=== PATIENT | female | born 1960 | race Caucasian/White ===

== ENCOUNTER 2018-05-30 04:53 | Inpatient (IN) ==
[2018-05-30 05:21] LABS: BE -2.1 mmoll (-3.0-3.0); BLOOD TYPE ARTERIAL; HCO3-(ACT) 23.2 mmoll (20.0-26.0); METHB 0.9 % (0.0-1.5); O2(CT) 16.8 mL/dL (15.0-23.0); O2HB 92.1 % (95.0-99.0); PO2(98.6) 80 mmHg (60-100); SAMPLE BLOOD; SAO2 95.9 % (95.0-100.0); THB 12.9 g/dL (11.5-17.4)
[2018-05-30] MEDS ORDERED: MAXIPIME ONE (05:31)
[2018-05-30] MEDS ORDERED: NS 0 ML ONE (05:32)
[2018-05-30 05:39] LABS: ALLEN TEST YES; MODALITY CANNULA; PCO2(98.6) 100 mmHg (35-45); pH(98.6) 7.09 (7.35-7.45)
--- NOTE | 2018-05-30 05:44 | PROVIDER DOCUMENTATION ---
HPI-Respiratory General - General Chief Complaint: Unresponsive Stated Complaint: Unresponsive Time Seen by Provider: 05/30/18 05:36 Source: patient Allergies/Adverse Reactions: Patient Allergies Allergy/AdvReac Type Severity Reaction Status Date / Time cephalexin monohydrate * Allergy Intermediate RASH Verified 05/28/18 05:45 [From Keflex] Home Medications: Home Medication List Medication Instructions Recorded Confirmed Last Taken Type Albuterol Sulfate [Proair Hfa] 2 inh IH Q4H PRN PRN 04/01/17 05/30/18 Unknown History Fluticasone/Salmeterol [Advair 1 inh IH DAILY 04/01/17 05/30/18 Unknown History 500-50 Diskus] Gabapentin 800 mg PO QHS 04/01/17 05/30/18 Unknown History Ranitidine HCl 300 mg PO DAILY@0600 04/01/17 05/30/18 Unknown History Ropinirole HCl 2 mg PO QHS 04/01/17 05/30/18 Unknown History Tramadol HCl 50 mg PO Q6H PRN PRN 04/01/17 05/30/18 Unknown History Albuterol 2.5MG/Ipratrop 0.5MG 3 ml INH RTQ4H neb 05/12/17 Unknown Rx [Duoneb (A & A)] Furosemide [Lasix] 40 mg PO DAILY #30 tab 05/12/17 05/30/18 Unknown Rx Tiotropium Emmet Inhaler 1 puff INH RTDAILY #1 inhaler 05/28/18 05/30/18 Unknown Rx [Spiriva] Buspirone HCl 10 mg PO DAILY 05/30/18 05/30/18 Unknown History Omeprazole 40 mg PO DAILY PRN 05/30/18 05/30/18 Unknown History - History of Present Illness-Resp Nature of Presenting Problem: 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 Tonight was found by significant other to be unresponsive. sent here by ems. 2 Duo chens en route. ABGs revealed resp failure with PCO2 of 100 with a pH 7.09 and pO2 of 80. Presently placed on Bipap. not sure if she uses narcotics. Onset/Duration: reports: this morning Timing: reports: still present Context: reports: recent URI Cough Quality/Degree: reports: dry cough Episode Frequency: frequent episodes Current Respiratory Medication Therapy: Initiated A/A nebulizer Associated Symptoms: reports: cough, flu-like symptoms, nasal congestion, shortness of breath, wheezing Similar Symptoms Previously?: Yes Recently seen or treated by another doctor?: Yes Review of Systems - Adult - REVIEW OF SYSTEMS - ADULT ROS:: unobtainable per condition (unresponsive) Constitutional: reports: no symptoms reported Eyes: reports: no symptoms reported Ears, Nose, Mouth & Throat: reports: no symptoms reported Cardiovascular: reports: no symptoms reported Respiratory: reports: no symptoms reported Gastrointestinal: reports: no symptoms reported Genitourinary: reports: no symptoms reported Musculoskeletal: reports: no symptoms reported Integumentary: reports: no symptoms reported Neurological: reports: no symptoms reported Psychiatric: reports: no symptoms reported Endocrine: reports: no symptoms reported Hematologic/Lymphatic: reports: no symptoms reported Allergic/Immunologic: reports: no symptoms reported All Other Systems: Reviewed and Negative Past History - Adult - PAST MEDICAL HISTORY-ADULT Review of Records: reports: Old Records Reviewed, Nursing Assessment Review, Medications Reviewed, Social history reviewed & non-contributory. Major Childhood Illnesses: reports: history unknown Cardiovascular: reports: denies history Respiratory: reports: asthma, COPD Gastrointestinal: reports: GERD Obstetrical/Gynecological: reports: denies history Genitourinary: reports: denies history Musculoskeletal: reports: denies history Neurological: reports: denies history Endocrine/Immune: reports: denies history Other Conditions: reports: denies history - PRIOR SURGERIES/PROCEDURES Surgical/Procedure History: reports: hysterectomy, orthopedic (extremity) ( right arm) - IMMUNIZATION STATUS Childhood Immunizations: See Nurse Assessment Flu Vaccine: See Nurse Assessment - FAMILY HISTORY Family History: reviewed, not pertinent Physical Exam-General - PHYSICAL EXAM-ADULT Initial Vital Signs Reviewed: Yes - CONSTITUTIONAL General Appearance: moderate distress, obese, slow to respond - EYES Eyes: PERRL/EOMI - HEAD, EARS, NOSE, MOUTH & THROAT HENMT: normocephalic/atraumatic, pharynx normal - NECK Neck: supple - RESPIRATORY Respiratory: respiratory distress, decreased breath sounds, rhonchi, wheezing, increased rate - GASTROINTESTINAL (ABDOMEN) Abdominal Exam: soft, no organomegaly - MUSCULOSKELETAL Back Exam: normal inspection Extremity: normal range of motion, no pedal edema - SKIN Integumentary: normal color, normal turgor, warm/dry - NEUROLOGIC Neurologic: grossly normal Progress - PLAN OF CARE/RESULTS Result Diagrams: 05/31/18 05:58 05/31/18 05:58 Departure - Departure Date of Disposition Decision: 05/30/17 Time of Disposition Decision: 06:00 DIAGNOSIS: Respiratory distress Disposition: ADMITTED INPATIENT 09 Certified Medical Emergency: Emergent Condition: Stable - Critical Care Note This patient required my direct & personal management of CC.: Yes Total Time (mins): 30 Critical Care Statement: This patient required my direct personal management to treat or rule out processes, the absence of which, could potentiallly result in sudden, clinically significant life or limb threatening deterioration. Attestation - Physician/ WAYLON Attestation The physician spent face to face time with patient:: Yes Advanced Practice Provider documentation review:: Supervising physician onsite and consulted in the evaluation and care of this patient. The physician did have a face to face encounter with the patient.
[2018-05-30 05:49] LABS: BASO# 0.07 X1000 (0.0-0.2); BASO% 0.2 % (0.0-0.8); EOS# 0.07 X1000 (0.0-0.7); EOS% 0.2 % (0.0-10.0); HEMATOCRIT 39.2 % (37.0-47.0); HEMOGLOBIN 12.4 g/dL (12.0-16.0); IMM GRAN# 1.12 X1000 (0.0-0.04); LYMPH# 1.16 X1000 (1.2-3.4); LYMPH% 3.1 % (20.5-51.1); MCH 29.7 PG (27-31); MCHC 31.6 g/dL (33-37); MCV 93.8 FL (81-99); MONO# 2.85 X1000 (0.11-0.59); MONO% 7.6 % (1.7-9.3); MPV 11.7 FL (7.4-10.4); NEUT# 32.43 X1000 (1.4-6.5); NEUT% 85.9 % (42.2-75.2); PLT 201 X1000 (130-400); RBC 4.18 XMIL (4.2-5.4); RDW 15.1 % (11.5-14.5)
[2018-05-30 06:04] LABS: BILIRUBIN URINE NEGATIVE (NEGATIVE); BLOOD URINE 3+ (NEGATIVE); CLARITY SL. CLOUDY (CLEAR); COLOR YELLOW; GLUCOSE URINE NEGATIVE (NEGATIVE); KETONE URINE TRACE mg/dL (NEGATIVE); LEUKOCYTES URINE NEGATIVE (NEGATIVE); NITRITE URINE NEGATIVE (NEGATIVE); SP GRAVITY URINE 1.025; UR AMPHETAMINES QUAL NONE DETECTED (NONE DETECT); UR BARBITUATES QUAL NONE DETECTED (NONE DETECT); UR BENZODIAZEPIN QUAL NONE DETECTED (NONE DETECT); UR CANNABINOIDS QUAL NONE DETECTED (NONE DETECT); UR COCAINE QUAL NONE DETECTED (NONE DETECT); UR METHADONE QUAL NONE DETECTED (NONE DETECT); UR METHAMPHETAMINE QUAL NONE DETECTED (NONE DETECT); UR OPIATES QUAL NONE DETECTED (NONE DETECT); UR OXYCODONE QUAL NONE DETECTED (NONE DETECT); UR PCP QUAL NONE DETECTED (NONE DETECT); UR PROPOXYPHENE QUAL NONE DETECTED (NONE DETECT); UR TCA QUAL NONE DETECTED (NONE DETECT); URINE BACTERIA 2+ /HFP; URINE CAST GRANULAR PRESENT /LPF; URINE EPITHELIAL CELLS <10 /HPF (<10); URINE RBC 20-40 /HPF (<10); URINE SOURCE CATH; URINE WBC <10 /HPF (<10); UROBILINOGEN URINE 4 mg/dL
[2018-05-30 06:11] LABS: INFLUENZA A NEGATIVE (NEGATIVE); INFLUENZA B NEGATIVE (NEGATIVE)
[2018-05-30] MEDS ORDERED: VANCOMYCIN IV PER PHARMACY MISC SCH (06:15)
[2018-05-30] MEDS ORDERED: LASIX ONE (06:18)
[2018-05-30] MEDS ORDERED: LASIX IV ONE (06:20)
[2018-05-30] MEDS ORDERED: NS 50 ML ONE (06:20)
[2018-05-30 06:23] LABS: ANISOCYTOSIS 1+; BANDS 9 % (0-1); EOS 4 % (1-10); LARGE PLATELETS 1+; LYMPHS 2 % (21-51); METAMYELOCYTES 5 %; MONO 4 % (1-9); POIKILOCYTOSIS 1+; SEGS 76 % (42-75); SPHEROCYTES 2+; STOMATOCYTES 1+
[2018-05-30 06:28] LABS: AGAP 18; ALBUMIN 3.6 g/dL (3.5-5.0); ALKALINE PHOSPHATASE 209 U/L (32-104); BUN 12 mg/dL (8-22); CALCIUM 9.1 mg/dL (8.8-10.2); CHLORIDE 90 mmol/L (98-107); CK PROFILE 278 U/L (24-173); COSMO 267; CREATININE 0.9 mg/dL (0.5-0.9); ESTIMATED GFR > 60; GLUCOSE 210 mg/dL (70-104); GOT 22 U/L (10-30); GPT 13 U/L (10-36); POTASSIUM 4.6 mmol/L (3.5-5.1); SODIUM 130 mmol/L (136-145); TCO2 22 mmol/L (25-35); TOTAL PROTEIN 8.2 g/dL (6.3-8.3)
[2018-05-30 06:32] LABS: BE 0.4 mmoll (-3.0-3.0); BLOOD TYPE ARTERIAL; HCO3-(ACT) 25.2 mmoll (20.0-26.0); METHB 1.2 % (0.0-1.5); O2(CT) 16.6 mL/dL (15.0-23.0); O2HB 94.1 % (95.0-99.0); PO2(98.6) 92 mmHg (60-100); SAMPLE BLOOD; SAO2 97.6 % (95.0-100.0); SRATE 16 BPM; THB 12.5 g/dL (11.5-17.4); pH(98.6) 7.22 (7.35-7.45)
[2018-05-30 06:35] LABS: PCO2(98.6) 73 mmHg (35-45)
[2018-05-30] MEDS: ZOSYN 3.375 GM in NS 50 ML IV SCH ×3 (06:35→18:07)
[2018-05-30 06:36] LABS: ALLEN TEST YES; MODALITY BI PAP
[2018-05-30 06:47] LABS: CK INDEX 2.7 (0.0-2.5); CK-MB 7.61 ng/mL (0.0-5.0)
--- NOTE | 2018-05-30 07:53 | Diag Imaging Result Doc PS360 ---
EXAM: CT THORAX W/CONTRAST - 05/30/2018 HISTORY: resp. failure TECHNIQUE: CT thorax with intravenous contrast COMPARISON: 04/11/2017 CT angiogram pulmonary arteries FINDINGS: There is infiltrate at the posterior right upper lobe which is suspicious for pneumonia. There are ill-defined infiltrates there are ill-defined infiltrates elsewhere in the right upper lobe, left upper lobe, and left lower lobe suggesting pneumonitis. There is mild dependent atelectasis. There is no pleural effusion or pneumothorax identified. There is possibly a small amount of retained mucus at the christiano. There is mild bilateral hilar and mild to moderate mediastinal adenopathy. There are left lower lobe calcified granuloma and calcified left hilar and subcarinal mediastinal lymph nodes from old granulomatous disease. There is a hiatal hernia similar to prior. There is thoracic spondylosis noted. IMPRESSION: Pneumonia at posterior right upper lobe. Ill-defined infiltrates elsewhere suspicious for pneumonitis. Possible small amount of retained mucus at the christiano. Mild hilar and mild to moderate mediastinal adenopathy. Hiatal hernia. This exam was performed using automated exposure control, adjustment of mA or kV according to patient size, and/or use of iterative reconstruction technique. Electronically signed by Nicanor Ramirez 05/30/2018 7:51 AM
--- NOTE | 2018-05-30 07:55 | Diag Imaging Result Doc PS360 ---
EXAM: CHEST-1 VIEW - 05/30/2018 HISTORY: ams TECHNIQUE: Portable chest COMPARISON: 06/24/2018 FINDINGS: Heart size appears upper normal. Inspiration is mildly shallow. There are ill-defined relatively diffuse bilateral infiltrates, which appear to be largely interstitial there is no pleural effusion or pneumothorax identified. IMPRESSION: Mildly shallow inspiration. Ill-defined bilateral infiltrates, which appear to be largely interstitial. Please see report of subsequent CT thorax for further evaluation of the chest. Electronically signed by Nicanor Ramirez 05/30/2018 7:53 AM
[2018-05-30] MEDS ORDERED: VANCOMYCIN 2,000 MG in NS 500 ML IV ONE (08:00)
--- NOTE | 2018-05-30 08:39 | EKG Report ---
Test Performed on : 05/30/2018 06:45:53 AM Test Reason : unresponsive Blood Pressure : / mmHG Vent. Rate : 089 BPM Atrial Rate : 089 BPM P-R Int : 160 ms QRS Dur : 090 ms QT Int : 364 ms P-R-T Axes : 066 067 052 degrees QTc Int : 442 ms Normal sinus rhythm. Possible Left atrial enlargement Borderline ECG When compared with ECG of 09-MAY-2017 19:42, No significant change was found Unconfirmed Result
[2018-05-30] MEDS ORDERED: SOLU-MEDROL IV ONE ×2 (09:59→18:00)
--- NOTE | 2018-05-30 10:40 | HISTORY AND PHYSICAL ---
PRIMARY CARE PHYSICIAN: Nicanor Marcus MD CHIEF COMPLAINT: Was found unresponsive at home by her , arrived via EMS. HISTORY OF PRESENTING ILLNESS: This is a 57-year-old female, who presents to [facility] ER via EMS after she was found by her to be unresponsive. Apparently, the patient had been in the emergency room 2 days prior with flu-like symptoms, had some fever, and a white count of 17, was negative for the flu, chest x-ray did not show any pneumonia, and she was discharged home. She went home, continued to not feel well, and was found unresponsive by her when he returned home from work yesterday. When she arrived to the emergency room, she had a O2 saturation of 96% on a non-rebreather and was 87% on room air. We did blood work that showed a white blood cell count of 37.7. Her ABG on arrival showed a pH of 7.09, pCO2 of 100, PO2 of 80, bicarbonate 23.2. This was on 3 L via nasal cannula. Showed a sodium of 130. Urinalysis was essentially negative. Her influenza A and B were both negative again. We did a chest x-ray that showed ill-defined bilateral infiltrates. A CT was recommended so we obtained the chest CT that showed pneumonia at the posterior right upper lobe, ill-defined infiltrates elsewhere suspicious for pneumonitis, and a possible small amount of retained mucus at the christiano so she will be admitted to the intensive care unit for further evaluation and treatment. PAST MEDICAL HISTORY: COPD and GERD and chronic respiratory failure with hypercapnia. PAST SURGICAL HISTORY: Hysterectomy and a right arm surgery. FAMILY HISTORY: Reviewed and noncontributory. SOCIAL HISTORY: She currently lives with family. She continues to smoke a pack a day, denies any alcohol or illicit drug use. ALLERGIES: Keflex. HOME MEDICATIONS: A current list will need to be obtained and reconciled, then we will review and start what is appropriate. Have placed an order for Nursing to update and confirm home medications. DIAGNOSTIC STUDIES: White blood cell count of 37.7, hemoglobin 12.4, hematocrit 39.2, platelets 201,000. ABG on arrival showed a pH of 7.09, pCO2 of 100, PO2 of 80, bicarbonate 23.2, and this was on 3 L via nasal cannula. After being placed on BiPAP approximately an hour later, her pH was up to 7.22, pCO2 down to 73, PO2 of 92, bicarbonate 25.2. Sodium of 130, potassium 4.6, chloride 90, CO2 of 22, BUN of 12, creatinine 0.9, glucose 210. Creatine kinase showed 278 with a CK-MB of 7.61, troponin was negative at 0.010. ProBNP of 1958. Plasma lactate was 1.1. Urinalysis was negative except for 2+ bacteria. Urine drug screen was negative. Influenza A and B were both negative. Chest x-ray showed mild shallow inspiration, ill-defined bilateral infiltrates which appear to be largely interstitial. Recommended a CT of the thorax. We did that, and that showed pneumonia at the posterior right upper lobe, ill-defined infiltrates elsewhere suspicious for a pneumonitis, and possible small amount of retained mucus at the christiano. EKG with normal sinus rhythm at 89. REVIEW OF SYSTEMS: Unable to obtain from patient, as she remains unresponsive at this time. Again, family states she had been in the emergency room 2 days prior with fever, shortness of breath, flu-like symptoms, but has been negative for the flu. PHYSICAL EXAMINATION: VITAL SIGNS: On arrival she had a pulse of 105, respirations of 9, blood pressure 145/98, and was saturating 96% on a non-rebreather. Currently, she has got a pulse of 91, respirations of 17, blood pressure 137/97, and is saturating 92% up to 100% on her BiPAP. GENERAL: This is a 57-year-old female, who is lying in the bed and does not respond to verbal stimuli, arouses mildly to tactile stimuli, but remains nonverbal. HEMNT: Normocephalic, atraumatic. Normal ENT inspection. Oropharynx and nares are clear. EYES: Pupils appear equal, round, and reactive to light and accommodation. Unable to assess extraocular movements at this time. NECK: Normal inspection. Normal range of motion. LUNGS: With wheezing throughout entire lung vasquez. Equal lung expansion and chest wall movement are noted. Again, she remains on BiPAP. ABDOMEN: Soft, nontender, nondistended. Bowel sounds are present x4 quadrants. MUSCULOSKELETAL: Unable to assess strength at this time. NEUROLOGICAL: Unable to obtain neurological exam at this time. ASSESSMENT: 1. Right upper lobe pneumonia with pneumonitis. 2. Acute on chronic respiratory failure with hypercapnia. 3. Leukocytosis. 4. Tobacco abuse. PLAN: She will be admitted to the intensive care unit. Placed on telemetry. Continue BiPAP. Blood cultures and urine culture are pending. We will need to update and confirm home medications. Vancomycin per Pharmacy protocol. Zosyn 3.375 g IV q.6 h. DuoNeb q.4 h. Recheck CBC and BMP in the a.m. Further orders after being seen by attending. Dictated by IVIS Howard for Andrew Campa MD cc: IVIS Howard MD Malcolm R. Hendricks, MD
[2018-05-30 12:28] LABS: BE 1.3 mmoll (-3.0-3.0); BLOOD TYPE ARTERIAL; HCO3-(ACT) 25.9 mmoll (20.0-26.0); METHB 1.1 % (0.0-1.5); O2(CT) 17.5 mL/dL (15.0-23.0); O2HB 95.2 % (95.0-99.0); PO2(98.6) 98 mmHg (60-100); SAMPLE BLOOD; SAO2 98.3 % (95.0-100.0); SRATE 20 BPM; pH(98.6) 7.28 (7.35-7.45)
[2018-05-30 12:33] LABS: ALLEN TEST YES; MODALITY BI PAP; PCO2(98.6) 63 mmHg (35-45)
[2018-05-30] MEDS: DUONEB (A & A) INH SCH ×4 (15:32→23:04)
[2018-05-30] MEDS: MUCOMYST 20% INH SCH ×2 (15:35→19:38)
[2018-05-30] MEDS ORDERED: DUONEB (A & A) INH PRN (15:56)
[2018-05-30 16:02] LABS: BE 3.5 mmoll (-3.0-3.0); BLOOD TYPE ARTERIAL; HCO3-(ACT) 27.6 mmoll (20.0-26.0); METHB 0.9 % (0.0-1.5); O2(CT) 16.6 mL/dL (15.0-23.0); O2HB 95.3 % (95.0-99.0); PO2(98.6) 88 mmHg (60-100); SAMPLE BLOOD; SAO2 98.2 % (95.0-100.0); THB 12.3 g/dL (11.5-17.4)
[2018-05-30 16:08] LABS: PCO2(98.6) 64 mmHg (35-45)
[2018-05-30 16:09] LABS: MODALITY BI PAP
[2018-05-30 16:13] LABS: ALLEN TEST YES
[2018-05-30] MEDS: PROTONIX IV SCH (16:17)
[2018-05-30] MEDS: SODIUM CHLORIDE 0.9% INJ SCH (16:17)
[2018-05-30] MEDS: HUMALOG (PARKWAY) SUBQ SCH ×2 (16:18→20:21)
[2018-05-30] MEDS ORDERED: ALBUTEROL NEB ONE (16:28)
--- NOTE | 2018-05-30 16:35 | HISTORY AND PHYSICAL ---
HISTORY AND PHYSICAL ADDENDUM Briefly, the patient came in minimally responsive, from what I understand. She has known COPD. She had flu like symptoms a couple of days back, elevated white count, and diarrhea. She was found to be profoundly hypercapnic and with a respiratory acidosis. Not sure if she took any narcotics and I am not entirely sure that they gave her any Narcan or anything to that effect. But, she does take narcotics. She is prescribed Davida and Percocet. I do not think she was given any Narcan. In any case, she has improved with positive pressure ventilation and her mental status has improved. She has a white count of 37,000. She was in the ER about three days ago with similar symptoms. In any case, workup showed pneumonia and she was admitted for treatment. Also, acute respiratory failure. She has some mucus plugging. PLAN: 1. Acute respiratory failure. BiPAP, breathing treatments, steroids, broad spectrum antibiotics. She is on vancomycin and Zosyn. I think that is reasonable to treat gram- negative and methicillin-resistant Staphylococcus aureus. Pulmonary toilet and follow. 2. Tobacco abuse. We will funeral prearrangement counselor on cessation. 3. Right upper lobe pneumonia. Continue empiric antibiotics and aspiration precautions and follow. CRITICAL CARE TIME: 35 minutes for respiratory failure requiring positive pressure ventilation. cc: nAdrew Campa MD
[2018-05-30] MEDS ORDERED: SOLU-MEDROL ONE (17:34)
[2018-05-30] MEDS ORDERED: ALBUTEROL NEB INH ONE (17:43)
[2018-05-30] MEDS: ADVAIR 500/50 DISKUS INH SCH (19:38)
[2018-05-30] MEDS: SOLU-MEDROL IV SCH (19:53)
[2018-05-30] MEDS: ULTRAM PO PRN (20:20)
[2018-05-30] MEDS: NEURONTIN PO SCH (20:20)
[2018-05-30] MEDS: REQUIP PO SCH (20:21)
[2018-05-30] MEDS: NICODERM PATCH TD PRN (21:43)
[2018-05-30] MEDS: TESSALON PO PRN (21:43)
[2018-05-30] MEDS: ZOFRAN IV PRN (21:43)
[2018-05-31] MEDS: ZOSYN 3.375 GM in NS 50 ML IV SCH ×4 (00:16→18:54)
[2018-05-31] MEDS: VANCOMYCIN 1,750 MG in NS 250 ML IV SCH ×2 (01:03→21:43)
[2018-05-31] MEDS: DUONEB (A & A) INH SCH ×6 (03:23→23:04)
[2018-05-31] MEDS: ULTRAM PO PRN ×2 (04:14→10:43)
[2018-05-31] MEDS: SOLU-MEDROL IV SCH ×3 (04:16→21:44)
[2018-05-31 04:30] LABS: BE 4.4 mmoll (-3.0-3.0); BLOOD TYPE ARTERIAL; HCO3-(ACT) 28.4 mmoll (20.0-26.0); METHB 0.8 % (0.0-1.5); O2(CT) 15.9 mL/dL (15.0-23.0); PO2(98.6) 181 mmHg (60-100); SAMPLE BLOOD; SAO2 99.1 % (95.0-100.0); THB 11.4 g/dL (11.5-17.4); pH(98.6) 7.31 (7.35-7.45)
[2018-05-31 04:33] LABS: ALLEN TEST YES; MODALITY BI PAP; PCO2(98.6) 64 mmHg (35-45)
[2018-05-31] MEDS: LOVENOX SUBQ SCH (05:54)
[2018-05-31] MEDS: HUMALOG (PARKWAY) SUBQ SCH ×4 (06:52→21:55)
--- NOTE | 2018-05-31 07:52 | Diag Imaging Result Doc PS360 ---
CHEST-PORTABLE - 05/31/2018 INDICATION: dyspnea COMPARISON: 05/30/2018 FINDINGS: There is mild pulmonary vascular congestion stable from prior. No infiltrates or edema. Heart size is top normal. IMPRESSION: No change from prior. No large infiltrates visible by chest x-ray. Electronically signed by Louis Mahoney 05/31/2018 7:50 AM
[2018-05-31 07:59] LABS: AGAP 11; BUN 13 mg/dL (8-22); CALCIUM 9.5 mg/dL (8.8-10.2); CHLORIDE 95 mmol/L (98-107); COSMO 276; CREATININE 0.7 mg/dL (0.5-0.9); ESTIMATED GFR > 60; GLUCOSE 140 mg/dL (70-104); MAGNESIUM 2.2 mg/dL (1.5-2.7); PHOSPHORUS 3.3 mg/dL (2.7-4.5); POTASSIUM 4.5 mmol/L (3.5-5.1); SODIUM 137 mmol/L (136-145); TCO2 30 mmol/L (25-35)
[2018-05-31] MEDS: SPIRIVA INH SCH (08:00)
[2018-05-31] MEDS: ADVAIR 500/50 DISKUS INH SCH (08:00)
[2018-05-31] MEDS: MUCOMYST 20% INH SCH ×2 (08:01→19:04)
[2018-05-31 08:24] LABS: BASO# 0.03 X1000 (0.0-0.2); BASO% 0.1 % (0.0-0.8); HEMATOCRIT 37.5 % (37.0-47.0); HEMOGLOBIN 11.6 g/dL (12.0-16.0); IMM GRAN% 0.5 % (0.0-0.5); LYMPH# 0.78 X1000 (1.2-3.4); LYMPH% 3.7 % (20.5-51.1); MCH 29.7 PG (27-31); MCHC 30.9 g/dL (33-37); MCV 96.2 FL (81-99); MONO# 0.65 X1000 (0.11-0.59); MONO% 3.1 % (1.7-9.3); NEUT# 19.73 X1000 (1.4-6.5); NEUT% 92.6 % (42.2-75.2); PLT 175 X1000 (130-400); RDW 14.9 % (11.5-14.5); WBC 21.29 X1000 (4.8-10.8)
[2018-05-31] MEDS: LASIX PO SCH (09:31)
[2018-05-31] MEDS: BUSPAR PO SCH (09:31)
[2018-05-31 09:58] LABS: BANDS 4 % (0-1); LYMPHS 9 % (21-51); MONO 3 % (1-9); SEGS 84 % (42-75)
--- NOTE | 2018-05-31 13:47 | PROGRESS NOTE ---
DATE: 05/31/2018 SUBJECTIVE: Patient has no focal complaints. OBJECTIVE: Vital Signs: Blood pressure is 106/57, heart rate of 83, respiratory rate of 20, temperature 97.1 degrees, satting 100% on 4 L. Cardiovascular: Regular rate and rhythm. Pulmonary: Bilateral breath sounds with wheezing throughout, although diminished compared to yesterday. GI: Soft, nontender, nondistended. Bowel sounds are positive. LABS: White count is 7.31, pCO2 64, PO2 181. White count is down to 21 from 37,000, platelets 175. Basic was normal. PROBLEM LIST: 1. Acute respiratory failure, hypoxic, hypercapnic related to chronic obstructive pulmonary disease, probably some obesity hypoventilation, improving with positive pressure ventilation. CO2 is improved, pH is somewhat improved. 2. Right upper lobe pneumonia. This is per CT. Her chest x-ray was clear. We will continue empiric antibiotics. She is on vancomycin and Zosyn. 3. Chronic obstructive pulmonary disease exacerbation. Continue breathing treatments, steroids. I am not going to adjust anything else at this point. 4. Tobacco abuse counseled. The patient is stable. DISPOSITION: Pending clinical status, but she is improved. I am going to watch her in the ICU for another several days or at least another 24 hours. cc: MD Cipriano Kevin MD
[2018-05-31] MEDS: TEARISOL OPH SOLUTION BOTH EYES SCH ×3 (14:55→21:43)
[2018-05-31] MEDS ORDERED: TYLENOL PO PRN (15:20)
[2018-05-31] MEDS: TYLENOL PO PRN (15:49)
[2018-05-31] MEDS: SODIUM CHLORIDE 0.9% INJ SCH (16:43)
[2018-05-31] MEDS: PROTONIX IV SCH (16:43)
[2018-05-31] MEDS: NEURONTIN PO SCH (21:42)
[2018-05-31] MEDS: REQUIP PO SCH (21:43)
[2018-05-31] MEDS: TESSALON PO PRN (21:54)
[2018-05-31] MEDS: NICODERM PATCH TD PRN (21:55)
[2018-06-01] MEDS: ZOSYN 3.375 GM in NS 50 ML IV SCH ×4 (01:00→11:35)
[2018-06-01] MEDS: DUONEB (A & A) INH SCH ×6 (03:52→23:20)
[2018-06-01 04:10] LABS: BE 8.9 mmoll (-3.0-3.0); BLOOD TYPE ARTERIAL; HCO3-(ACT) 31.8 mmoll (20.0-26.0); METHB 0.9 % (0.0-1.5); O2(CT) 14.6 mL/dL (15.0-23.0); O2HB 94.3 % (95.0-99.0); PO2(98.6) 73 mmHg (60-100); SAMPLE BLOOD; SAO2 97.7 % (95.0-100.0); pH(98.6) 7.34 (7.35-7.45)
[2018-06-01 04:12] LABS: PCO2(98.6) 68 mmHg (35-45)
[2018-06-01 04:13] LABS: ALLEN TEST YES; MODALITY BI PAP
[2018-06-01] MEDS: SOLU-MEDROL IV SCH ×2 (04:29→11:35)
[2018-06-01] MEDS: ULTRAM PO PRN ×2 (04:37→20:15)
[2018-06-01] MEDS: LOVENOX SUBQ SCH (05:00)
[2018-06-01] MEDS: HUMALOG (PARKWAY) SUBQ SCH ×4 (06:17→20:16)
[2018-06-01 07:16] LABS: BASO# 0.12 X1000 (0.0-0.2); BASO% 0.5 % (0.0-0.8); HEMATOCRIT 37.1 % (37.0-47.0); HEMOGLOBIN 11.3 g/dL (12.0-16.0); IMM GRAN# 0.56 X1000 (0.0-0.04); IMM GRAN% 2.2 % (0.0-0.5); LYMPH# 1.43 X1000 (1.2-3.4); LYMPH% 5.7 % (20.5-51.1); MCH 29.6 PG (27-31); MCHC 30.5 g/dL (33-37); MCV 97.1 FL (81-99); MONO# 0.96 X1000 (0.11-0.59); MONO% 3.8 % (1.7-9.3); MPV 12.1 FL (7.4-10.4); NEUT% 87.8 % (42.2-75.2); PLT 202 X1000 (130-400); RBC 3.82 XMIL (4.2-5.4); RDW 14.9 % (11.5-14.5); WBC 24.97 X1000 (4.8-10.8)
[2018-06-01] MEDS: SPIRIVA INH SCH (07:41)
[2018-06-01] MEDS: ADVAIR 500/50 DISKUS INH SCH (07:41)
[2018-06-01] MEDS: MUCOMYST 20% INH SCH ×2 (07:42→19:28)
[2018-06-01 08:23] LABS: BANDS 1 % (0-1); LYMPHS 7 % (21-51); MONO 1 % (1-9); SEGS 91 % (42-75)
[2018-06-01] MEDS: TEARISOL OPH SOLUTION BOTH EYES SCH ×3 (09:20→16:55)
[2018-06-01] MEDS: BUSPAR PO SCH (09:20)
[2018-06-01] MEDS: LASIX PO SCH (09:20)
[2018-06-01] MEDS ORDERED: VENTOLIN HFA INH PRN (15:12)
[2018-06-01] MEDS ORDERED: INVANZ 1 GM/NS 1 GM/50 ML IVPB MISC ONE (15:31)
[2018-06-01] MEDS ORDERED: XYLOCAINE-MPF 1% INJ ONE (15:45)
[2018-06-01] MEDS ORDERED: INVANZ IM ONE (15:45)
[2018-06-01] MEDS: SOLU-MEDROL IM SCH (20:14)
[2018-06-01] MEDS: TESSALON PO PRN (20:15)
[2018-06-01] MEDS: NEURONTIN PO SCH (20:15)
[2018-06-01] MEDS: AMBIEN PO PRN (20:15)
[2018-06-01] MEDS: NICODERM PATCH TD PRN (20:15)
[2018-06-01] MEDS: REQUIP PO SCH (20:15)
[2018-06-01] MEDS: ZYVOX PO SCH (20:16)
--- NOTE | 2018-06-01 20:28 | PROGRESS NOTE ---
DATE: 06/01/2018 SUBJECTIVE: The patient has no major complaints. OBJECTIVE: Vital Signs: Blood pressure is 124/61, heart rate of 80, respiratory rate 12, temperature 97.4 degrees, 96% on 3 L. Cardiovascular: Regular rate and rhythm. Pulmonary: Bilateral breath sounds. Clear to auscultation. GI: Soft, nontender, nondistended. Bowel sounds were positive. LABORATORY STUDIES: White count 24. Hemoglobin and hematocrit of 11 and 37. Platelets of 202,000. pH 7.34, pCO2 68, PaO2 73, otherwise normal. PROBLEM LIST: 1. Acute respiratory failure. She seems to be doing better. We are weaning her off BiPAP. Overall, she has improved. I think we are probably getting close to being able to get her up a little bit and wean oxygen. 2. Right upper lobe pneumonia. She is on antibiotics. She is on Zosyn and vancomycin. We have lost IV access intermittently, so I am going to give her Invanz and Zyvox, and follow. 3. Chronic obstructive pulmonary disease exacerbation. She is improved. We will continue treatment and follow closely. Weaning her steroids. 4. Disposition. I anticipate discharge hopefully in the next couple days. We will see how things go shortly. cc: MD Cipriano Kevin MD
[2018-06-02] MEDS: DUONEB (A & A) INH SCH ×6 (03:46→23:07)
[2018-06-02] MEDS: TEARISOL OPH SOLUTION BOTH EYES SCH ×5 (04:13→21:25)
[2018-06-02 05:55] LABS: EOS# 0.12 X1000 (0.0-0.7); EOS% 0.5 % (0.0-10.0); HEMATOCRIT 41.2 % (37.0-47.0); HEMOGLOBIN 12.7 g/dL (12.0-16.0); LYMPH# 2.23 X1000 (1.2-3.4); LYMPH% 9.2 % (20.5-51.1); MCH 29.6 PG (27-31); MCHC 30.8 g/dL (33-37); MONO# 1.93 X1000 (0.11-0.59); MPV 12.3 FL (7.4-10.4); PLT 135 X1000 (130-400); RBC 4.29 XMIL (4.2-5.4); RDW 14.8 % (11.5-14.5); WBC 24.17 X1000 (4.8-10.8)
[2018-06-02 06:08] LABS: BE 10.7 mmoll (-3.0-3.0); HCO3-(ACT) 33.2 mmoll (20.0-26.0); METHB 0.9 % (0.0-1.5); O2(CT) 16.4 mL/dL (15.0-23.0); O2HB 93.7 % (95.0-99.0); PO2(98.6) 69 mmHg (60-100); SAMPLE BLOOD; SAO2 96.3 % (95.0-100.0); THB 12.4 g/dL (11.5-17.4)
[2018-06-02 06:09] LABS: INR 0.95; PROTIME 13.2 Seconds (11.0-16.0)
[2018-06-02 06:11] LABS: ALLEN TEST YES; BLOOD TYPE ARTERIAL; MODALITY CANNULA; PCO2(98.6) 61 mmHg (35-45)
[2018-06-02 06:15] LABS: AGAP 10; BUN 25 mg/dL (8-22); CALCIUM 9.1 mg/dL (8.8-10.2); CHLORIDE 96 mmol/L (98-107); COSMO 283; CREATININE 0.8 mg/dL (0.5-0.9); ESTIMATED GFR > 60; GLUCOSE 145 mg/dL (70-104); POTASSIUM 4.5 mmol/L (3.5-5.1); SODIUM 138 mmol/L (136-145); TCO2 32 mmol/L (25-35)
[2018-06-02] MEDS: LOVENOX SUBQ SCH (06:18)
[2018-06-02] MEDS: PRILOSEC PO SCH (06:18)
[2018-06-02] MEDS: HUMALOG (PARKWAY) SUBQ SCH ×4 (06:18→21:25)
[2018-06-02 06:43] LABS: LYMPHS 20 % (21-51); MONO 5 % (1-9); SEGS 75 % (42-75)
[2018-06-02] MEDS: MUCOMYST 20% INH SCH ×2 (08:19→19:22)
[2018-06-02] MEDS: SPIRIVA INH SCH (08:21)
[2018-06-02] MEDS: ADVAIR 500/50 DISKUS INH SCH (08:21)
[2018-06-02] MEDS: SOLU-MEDROL IM SCH (09:25)
[2018-06-02] MEDS: LASIX PO SCH (09:26)
[2018-06-02] MEDS: BUSPAR PO SCH (09:26)
[2018-06-02] MEDS: ZYVOX PO SCH (09:26)
[2018-06-02] MEDS ORDERED: NS 250 ML ONE (11:13)
[2018-06-02] MEDS ORDERED: MAXIPIME 2 GM in NS 100 ML IV SCH (14:00)
--- NOTE | 2018-06-02 14:19 | PROGRESS NOTE ---
DATE: 06/02/2018 SUBJECTIVE: Patient has no major complaints. OBJECTIVE: Blood pressure is 123/62, heart rate 84, respiratory rate 21, temperature 97.2 degrees, 95 percent on 3 L.Cardiovascular: Regular rate and rhythm. Pulmonary: Bilateral breath sounds. Clear to auscultation. GI: Soft, nontender, nondistended. Bowel sounds are positive. LABORATORY DATA: Her white count is 24, hemoglobin and hematocrit 12 and 41, platelets 135,000. Basic was normal. PROBLEM LIST: 1. Acute respiratory failure secondary to COPD, hypercapnia, pneumonia, wean her off BiPAP and follow closely. 2. Right upper lobe pneumonia. She was on vancomycin. I guess we discontinued that. She is on ertapenem. She has lost IV access. We are going to do vancomycin as well. We can't do cefepime because she is allergic to Keflex. She was on Zosyn and vancomycin. In any case, we will continue the medicines and follow. I am going to wean her steroids. 3. Thrombocytopenia. Pharmacy has brought up that platelets have dropped a bit. She has been on Lovenox for a couple days. We will check a platelet function test and switch her to SCDs for the time being. She is on other medications, Zyvox. She had been on vancomycin. Some of these things could be also inducing her issues. 4. Chronic obstructive pulmonary disease exacerbation. I am going to wean her steroids because she seems to be breathing a bit better. DISPOSITION: She is very weak so we will work on trying to get her up and get her a bit stronger, and hopefully can go home in the next couple days pending her clinical status. cc: MD Cipriano Kevin MD
--- NOTE | 2018-06-02 14:37 | Diag Imaging Result Doc PS360 ---
EXAM: CHEST-PORTABLE INDICATION: dyspnea TECHNIQUE: 2 views COMPARISON: 05/31/2018 FINDINGS: There has been interval placement of a left PICC line. The tip projects over the lower SVC in the expected position. Mild interstitial thickening is stable and may be chronic. No new consolidation is identified. Cardiac silhouette is stable. IMPRESSION: Interval placement of left PICC line. Stable chest, otherwise. Electronically signed by Srinivasan Corbin 06/02/2018 2:34 PM
[2018-06-02] MEDS: ZOSYN 3.375 GM in NS 50 ML IV SCH ×2 (17:01→23:17)
[2018-06-02] MEDS: ZYVOX 600 MG/D5W 600 MG/300 ML IVPB IV SCH (21:12)
[2018-06-02] MEDS: SOLU-MEDROL IV SCH (21:12)
[2018-06-02] MEDS: NEURONTIN PO SCH (21:13)
[2018-06-02] MEDS: REQUIP PO SCH (21:13)
[2018-06-02] MEDS: NICODERM PATCH TD PRN (21:23)
[2018-06-02] MEDS: ULTRAM PO PRN (21:23)
[2018-06-02] MEDS: TESSALON PO PRN (21:29)
[2018-06-02] MEDS: AMBIEN PO PRN (22:05)
[2018-06-03] MEDS: DUONEB (A & A) INH SCH ×6 (03:23→23:05)
[2018-06-03] MEDS: ZOSYN 3.375 GM in NS 50 ML IV SCH ×4 (05:12→23:07)
[2018-06-03] MEDS: HUMALOG (PARKWAY) SUBQ SCH ×4 (06:30→20:30)
[2018-06-03] MEDS: PRILOSEC PO SCH (06:31)
[2018-06-03 07:15] LABS: HEMATOCRIT 39.1 % (37.0-47.0); HEMOGLOBIN 12.3 g/dL (12.0-16.0); MCH 29.6 PG (27-31); MCHC 31.5 g/dL (33-37); MPV 11.3 FL (7.4-10.4); RBC 4.16 XMIL (4.2-5.4); RDW 14.7 % (11.5-14.5); WBC 21.79 X1000 (4.8-10.8)
[2018-06-03 07:23] LABS: AGAP 7; BUN 22 mg/dL (8-22); CALCIUM 8.8 mg/dL (8.8-10.2); CHLORIDE 94 mmol/L (98-107); COSMO 281; CREATININE 0.8 mg/dL (0.5-0.9); ESTIMATED GFR > 60; GLUCOSE 131 mg/dL (70-104); POTASSIUM 4.1 mmol/L (3.5-5.1); SODIUM 138 mmol/L (136-145); TCO2 37 mmol/L (25-35)
[2018-06-03] MEDS: ADVAIR 500/50 DISKUS INH SCH (08:17)
[2018-06-03] MEDS: MUCOMYST 20% INH SCH ×2 (08:18→19:19)
[2018-06-03] MEDS: SOLU-MEDROL IV SCH ×2 (09:17→20:29)
[2018-06-03] MEDS: BUSPAR PO SCH (09:17)
[2018-06-03] MEDS: LASIX PO SCH (09:17)
[2018-06-03] MEDS: TEARISOL OPH SOLUTION BOTH EYES SCH ×4 (09:18→20:30)
[2018-06-03] MEDS: ZYVOX 600 MG/D5W 600 MG/300 ML IVPB IV SCH ×2 (09:18→20:31)
[2018-06-03] MEDS: TESSALON PO PRN ×2 (09:27→22:29)
[2018-06-03] MEDS: ULTRAM PO PRN ×2 (14:03→22:29)
[2018-06-03] MEDS: ZOFRAN IV PRN (14:04)
[2018-06-03] MEDS: REQUIP PO SCH (20:30)
[2018-06-03] MEDS: NEURONTIN PO SCH (20:30)
[2018-06-03] MEDS: NICODERM PATCH TD PRN (22:28)
[2018-06-03] MEDS: AMBIEN PO PRN (22:29)
--- NOTE | 2018-06-03 22:38 | PROGRESS NOTE ---
DATE: 06/03/2018 SUBJECTIVE: Patient notes she is still having some leg pain, still having some cough and congestion. OBJECTIVE: Vital Signs: Temperature 98 degrees, pulse 88, respiratory rate 20, BP 138/78. General: Patient is awake, alert. She is in minimal respiratory distress. HEENT: Normocephalic. Neck: Supple. Cardiovascular: Regular rate. Chest: Mild wheezing but good air movement. Abdomen: Soft, nondistended. Extremities: Moves all extremities. ASSESSMENT: 1. Acute respiratory failure. 2. Right upper lobe pneumonia. 3. Thrombocytopenia. 4. Chronic obstructive pulmonary disease with exacerbation. PLAN: We will continue patient in the hospital. Continue Solu-Medrol, Zosyn and Zyvox. Leukocytosis continues to improve down from 37 to 21. Further orders as needed. cc: Cipriano Castillo MD
[2018-06-04] MEDS: DUONEB (A & A) INH SCH ×6 (03:24→22:34)
[2018-06-04] MEDS: ZOSYN 3.375 GM in NS 50 ML IV SCH ×4 (05:00→23:40)
[2018-06-04] MEDS: PRILOSEC PO SCH (06:21)
[2018-06-04] MEDS: HUMALOG (PARKWAY) SUBQ SCH ×3 (06:21→15:44)
[2018-06-04 06:28] LABS: HEMATOCRIT 39.8 % (37.0-47.0); HEMOGLOBIN 12.2 g/dL (12.0-16.0); MCH 29.2 PG (27-31); MCHC 30.7 g/dL (33-37); MCV 95.2 FL (81-99); MPV 11.1 FL (7.4-10.4); RBC 4.18 XMIL (4.2-5.4); RDW 14.9 % (11.5-14.5); WBC 21.34 X1000 (4.8-10.8)
[2018-06-04 06:48] LABS: AGAP 7; ALBUMIN 2.8 g/dL (3.5-5.0); ALKALINE PHOSPHATASE 118 U/L (32-104); BUN 19 mg/dL (8-22); CALCIUM 8.4 mg/dL (8.8-10.2); CHLORIDE 97 mmol/L (98-107); COSMO 284; CREATININE 0.8 mg/dL (0.5-0.9); ESTIMATED GFR > 60; GLUCOSE 114 mg/dL (70-104); GOT 12 U/L (10-30); GPT 15 U/L (10-36); POTASSIUM 4.2 mmol/L (3.5-5.1); SODIUM 141 mmol/L (136-145); TCO2 37 mmol/L (25-35); TOTAL PROTEIN 6.3 g/dL (6.3-8.3)
[2018-06-04] MEDS: ADVAIR 500/50 DISKUS INH SCH (07:40)
[2018-06-04] MEDS: MUCOMYST 20% INH SCH ×2 (07:41→19:17)
[2018-06-04] MEDS: SPIRIVA INH SCH ×2 (07:58→08:17)
[2018-06-04] MEDS: SOLU-MEDROL IV SCH ×2 (09:35→21:20)
[2018-06-04] MEDS: TEARISOL OPH SOLUTION BOTH EYES SCH ×4 (09:35→21:29)
[2018-06-04] MEDS: BUSPAR PO SCH (09:35)
[2018-06-04] MEDS: ZYVOX 600 MG/D5W 600 MG/300 ML IVPB IV SCH ×2 (09:35→21:21)
[2018-06-04] MEDS: LASIX PO SCH (09:35)
[2018-06-04] MEDS: ULTRAM PO PRN ×2 (13:16→21:29)
[2018-06-04] MEDS: NICOTINE GUM BUCCAL PRN ×2 (13:16→18:50)
[2018-06-04] MEDS: ZOFRAN IV PRN (17:33)
[2018-06-04] MEDS: NEURONTIN PO SCH (21:20)
[2018-06-04] MEDS: REQUIP PO SCH (21:20)
[2018-06-04] MEDS: NICODERM PATCH TD PRN (21:29)
--- NOTE | 2018-06-04 23:51 | PROGRESS NOTE ---
DATE: 06/04/2018 SUBJECTIVE: Patient notes she is starting to feel better. She is starting to ambulate a little bit, but she is still very weak. OBJECTIVE: Vital Signs: Reviewed. Temperature 98 degrees, pulse 81, respiratory 18, BP 118/57, saturation 96% on 3 L. General: Patient is an obese female who is currently in mild respiratory distress. She is pleasant to talk with. She does appear to be stronger. HEENT: Normocephalic. Neck: Supple. CARDIOVASCULAR: Regular rate. Chest: Clear, nonlabored. No crackles. Abdomen: Soft, nondistended. Extremities: Moves all extremities. ASSESSMENT: 1. Acute respiratory failure, hypercapnia. Improved. 2. Right upper lobe pneumonia. 3. Hypoxic respiratory failure. 4. Thrombocytopenia. 5. Leukocytosis. White count continues to improve, currently down to 21. PLAN: We will continue patient in the hospital. Continue Solu-Medrol at 40 IV q.12 hours. Continue Zyvox and Zosyn. As her white count improves, hopefully, we can stop the Zyvox and follow. cc: Cipriano Castillo MD
[2018-06-05] MEDS: HUMALOG (PARKWAY) SUBQ SCH ×5 (01:25→21:50)
[2018-06-05] MEDS: ZOFRAN IV PRN (02:53)
[2018-06-05] MEDS: DUONEB (A & A) INH SCH ×6 (03:07→23:34)
[2018-06-05] MEDS: ZOSYN 3.375 GM in NS 50 ML IV SCH ×4 (05:30→21:55)
[2018-06-05] MEDS: PRILOSEC PO SCH ×2 (06:15→21:51)
[2018-06-05 07:22] LABS: HEMATOCRIT 40.7 % (37.0-47.0); HEMOGLOBIN 12.6 g/dL (12.0-16.0); MCH 29.5 PG (27-31); MCV 95.3 FL (81-99); MPV 11.2 FL (7.4-10.4); RBC 4.27 XMIL (4.2-5.4); WBC 21.27 X1000 (4.8-10.8)
[2018-06-05 07:40] LABS: AGAP 7; ALBUMIN 3.1 g/dL (3.5-5.0); ALKALINE PHOSPHATASE 116 U/L (32-104); BUN 15 mg/dL (8-22); CALCIUM 8.7 mg/dL (8.8-10.2); CHLORIDE 97 mmol/L (98-107); COSMO 283; CREATININE 0.8 mg/dL (0.5-0.9); ESTIMATED GFR > 60; GLUCOSE 140 mg/dL (70-104); GOT 12 U/L (10-30); GPT 16 U/L (10-36); POTASSIUM 4.7 mmol/L (3.5-5.1); SODIUM 140 mmol/L (136-145); TCO2 36 mmol/L (25-35); TOTAL PROTEIN 6.9 g/dL (6.3-8.3)
[2018-06-05] MEDS: MUCOMYST 20% INH SCH ×2 (07:49→20:08)
[2018-06-05] MEDS: SPIRIVA INH SCH (07:53)
[2018-06-05] MEDS: ADVAIR 500/50 DISKUS INH SCH (07:53)
[2018-06-05] MEDS: TUMS EXTRA STRENGTH PO PRN (09:34)
[2018-06-05] MEDS: LASIX PO SCH (09:35)
[2018-06-05] MEDS: SOLU-MEDROL IV SCH (09:35)
[2018-06-05] MEDS: BUSPAR PO SCH (09:35)
[2018-06-05] MEDS: TEARISOL OPH SOLUTION BOTH EYES SCH ×4 (09:46→21:52)
[2018-06-05] MEDS: NEURONTIN PO SCH (21:51)
[2018-06-05] MEDS: REQUIP PO SCH (21:52)
--- NOTE | 2018-06-05 22:30 | PROGRESS NOTE ---
DATE: 06/05/2018 SUBJECTIVE: Patient notes she is still having leg pain, but seems to be better. Notes that her breathing is improving. States she is eating better. She is actually starting to get out of bed some, although still needs assistance. PHYSICAL EXAM: Vital signs: Temperature 97.5 degrees, pulse 78, respiratory 18, BP 153/69. General: Patient is awake, alert. She is in no current respiratory distress. Much better respiratory effort. She is alert and oriented, morbidly obese female. HEENT: Normocephalic. Neck: Supple. CARDIOVASCULAR: Regular rate. Chest: Relatively clear. Decreased but equal bilaterally. No current crackles, no wheezing. Abdomen: Soft, obese, nondistended. Extremities: Moves all extremities. She has no edema. Neurologic: No focal changes. ASSESSMENT: 1. Leukocytosis. White count has dropped from 37 down to 21, although has remained stable at 21. 2. Acute respiratory failure with chronic obstructive pulmonary disease exacerbation. 3. Hypercapnic respiratory failure. She is staying off BiPAP during the day. 4. Right upper lobe pneumonia. 5. Thrombocytopenia, improving. 6. Morbid obesity. PLAN: Continue patient in the hospital. We will stop her Zyvox at this point. We will decrease her Solu-Medrol to daily, if she tolerates. Hopefully, she can discharge home over the next day or two. cc: Cipriano Castillo MD
[2018-06-05] MEDS: AMBIEN PO PRN (22:40)
[2018-06-05] MEDS: ULTRAM PO PRN (22:40)
[2018-06-05] MEDS: NICODERM PATCH TD PRN (22:40)
[2018-06-06] MEDS: ZOSYN 3.375 GM in NS 50 ML IV SCH ×6 (02:06→22:05)
[2018-06-06] MEDS: DUONEB (A & A) INH SCH ×6 (04:25→22:50)
[2018-06-06] MEDS: TUMS EXTRA STRENGTH PO PRN (06:00)
[2018-06-06] MEDS: PRILOSEC PO SCH ×2 (06:18→22:05)
[2018-06-06] MEDS: HUMALOG (PARKWAY) SUBQ SCH ×4 (06:34→22:06)
[2018-06-06 06:38] LABS: HEMATOCRIT 39.7 % (37.0-47.0); HEMOGLOBIN 12.2 g/dL (12.0-16.0); MCH 29.3 PG (27-31); MCHC 30.7 g/dL (33-37); MCV 95.2 FL (81-99); MPV 11.1 FL (7.4-10.4); RBC 4.17 XMIL (4.2-5.4); RDW 15.2 % (11.5-14.5); WBC 19.04 X1000 (4.8-10.8)
[2018-06-06 06:46] LABS: AGAP 8; ALBUMIN 2.8 g/dL (3.5-5.0); ALKALINE PHOSPHATASE 104 U/L (32-104); BUN 19 mg/dL (8-22); CALCIUM 8.4 mg/dL (8.8-10.2); CHLORIDE 94 mmol/L (98-107); COSMO 275; CREATININE 0.8 mg/dL (0.5-0.9); ESTIMATED GFR > 60; GLUCOSE 118 mg/dL (70-104); GOT 13 U/L (10-30); GPT 14 U/L (10-36); POTASSIUM 3.5 mmol/L (3.5-5.1); SODIUM 136 mmol/L (136-145); TCO2 34 mmol/L (25-35); TOTAL PROTEIN 6.8 g/dL (6.3-8.3)
[2018-06-06] MEDS: SPIRIVA INH SCH (07:46)
[2018-06-06] MEDS: ADVAIR 500/50 DISKUS INH SCH (07:46)
[2018-06-06] MEDS: MUCOMYST 20% INH SCH ×2 (07:50→19:11)
[2018-06-06] MEDS: SOLU-MEDROL IV SCH (09:44)
[2018-06-06] MEDS: BUSPAR PO SCH (09:45)
[2018-06-06] MEDS: LASIX PO SCH (09:45)
[2018-06-06] MEDS: TEARISOL OPH SOLUTION BOTH EYES SCH ×4 (09:46→22:05)
[2018-06-06] MEDS: TYLENOL PO PRN (12:37)
[2018-06-06] MEDS: CARAFATE PO SCH ×2 (17:35→22:05)
[2018-06-06] MEDS: NICODERM PATCH TD PRN (22:04)
[2018-06-06] MEDS: NEURONTIN PO SCH (22:04)
[2018-06-06] MEDS: AMBIEN PO PRN (22:04)
[2018-06-06] MEDS: ULTRAM PO PRN (22:04)
[2018-06-06] MEDS: REQUIP PO SCH (22:04)
[2018-06-06] MEDS ORDERED: AYR NASAL SPRAY NAS PRN (22:44)
--- NOTE | 2018-06-07 00:04 | PROGRESS NOTE ---
DATE: 06/06/2018 SUBJECTIVE: Patient notes that overall she is feeling a lot better, able to ambulate a little bit better. Denies any fevers or chills. PHYSICAL EXAM: Vital signs: Temperature 97.9, pulse 87, respiratory rate 18, BP 146/76, sat 96% on 3 L. General: Patient is awake, alert, obese female who is currently in no acute distress. Appears to be at her baseline. HEENT: Normocephalic. Neck: Supple. Cardiovascular: Regular rate. No murmurs. Chest: Decreased but equal breath sounds bilaterally. Abdomen: Soft, nondistended. Extremities: Moves all extremities. ASSESSMENT: 1. Acute hypoxic respiratory failure. 2. Chronic obstructive pulmonary disease with exacerbation. 3. Hypercapnic respiratory failure. Continues to improve. Currently she is off BiPAP during the day. 4. Right upper lobe pneumonia. 5. Thrombocytopenia. PLAN: Continue patient in the hospital. Leukocytosis has improved. She is still hypoxic. Does have oxygen at home. If her physical symptoms will improve so that she can ambulate, we will discharge her home over the next day or two. cc: Cipriano Castillo MD
[2018-06-07] MEDS: DUONEB (A & A) INH SCH ×4 (03:38→16:17)
[2018-06-07] MEDS: ZOSYN 3.375 GM in NS 50 ML IV SCH ×2 (04:46→11:40)
[2018-06-07] MEDS: HUMALOG (PARKWAY) SUBQ SCH ×3 (06:23→16:19)
[2018-06-07] MEDS: PRILOSEC PO SCH (06:24)
[2018-06-07] MEDS: SPIRIVA INH SCH (08:00)
[2018-06-07] MEDS: ADVAIR 500/50 DISKUS INH SCH (08:00)
[2018-06-07] MEDS: MUCOMYST 20% INH SCH (08:01)
[2018-06-07] MEDS: ULTRAM PO PRN (08:46)
[2018-06-07] MEDS: LASIX PO SCH (08:47)
[2018-06-07] MEDS: BUSPAR PO SCH (08:47)
[2018-06-07] MEDS: SOLU-MEDROL IV SCH (08:47)
[2018-06-07] MEDS: CARAFATE PO SCH ×3 (08:47→16:20)
[2018-06-07] MEDS: TEARISOL OPH SOLUTION BOTH EYES SCH ×3 (08:48→16:20)
[2018-06-07 15:26] VITALS: BP 147/73
--- NOTE | 2018-06-08 19:43 | DISCHARGE SUMMARY ---
ADMISSION DATE: 05/30/2018 DISCHARGE DATE: 06/07/2018 DIAGNOSES: 1. Right upper lobe pneumonia with pneumonitis. 2. [id number] respiratory failure with hypercapnia. 3. Leukocytosis. 4. Chronic obstructive pulmonary disease with acute exacerbation. 5. Thrombocytopenia. DIAGNOSTIC DATA: 1. On 05/30/2018, chest x-ray revealed ill-defined bilateral infiltrates which appear to be interstitial. 2. CT of the chest revealed pneumonia at the posterior right upper lobe with ill-defined infiltrates elsewhere, suspicious for pneumonitis; possible small amount of retained mucus at the christiano; mild hilar and mild to moderate mediastinal adenopathy; hiatal hernia. 3. Chest x-ray 06/02/2018 revealed a PICC line; the tip projects over the lower SVC in the expected position; stable chest otherwise. HOSPITAL COURSE: Ms. Francisco presented to the emergency room via EMS after being found unresponsive at home by her . She was found to be in acute respiratory failure with hypoxia and hypercapnia, as well as to have right upper lobe pneumonia with pneumonitis. She was initially treated with vancomycin and Zosyn for antibiotics, and was changed to Invanz and Zyvox on 06/01. We were unable to obtain IV access; therefore, a PICC line was placed for further antibiotic management. She has since been transitioned to [*] For her COPD exacerbation, she was treated with DuoNeb q.4 hours as well as steroids to taper. Thankfully, this has resolved. In regards to her respiratory failure, she was initially placed on BiPAP, which we were able to wean. She has not required BiPAP since 06/03. Her platelets dropped to 135,000 on 06/02. Medications were changed and on 06/06 her platelets are 205,000. DISCHARGE PHYSICAL EXAMINATION: Vital signs: Blood pressure is 147/73 with a heart rate of 93, respirations are 18, temperature is 97.5 degrees oral with room air saturations 97%. Cardiovascular: Regular rate and rhythm. S1 and S2 appreciated. Pulmonary: Breath sounds were diminished. Chest rises and falls symmetrically with respiration. Gastrointestinal: Abdomen is soft, nontender, nondistended. Bowel sounds in all 4 quadrants. Neurologic: She is alert and oriented x3. DISCHARGE MEDICATIONS: 1. Ventolin inhaler 2 puffs q.6 hours p.r.n. wheezing. 2. Tums Extra-Strength 750 p.o. after meals. 3. Tessalon Perles 100 mg p.o. t.i.d. as needed for cough. 4. Spiriva 1 puff daily. 5. Prilosec 40 mg p.o. b.i.d. 6. Lasix 40 mg p.o. daily. 7. DuoNeb q.4 hours as needed for wheezing. 8. Carafate 1 g p.o. AC and at bedtime. 9. Tramadol 50 mg p.o. q.6 hours p.r.n. 10. Gabapentin 800 mg p.o. at bedtime. 11. Zantac 300 mg p.o. daily. 12. Ropinirole 2 mg p.o. at bedtime. 13. She is to continue to use her home oxygen as prior to hospitalization. DISPOSITION: 1. Followup: She is to follow up with Dr. Castillo in the next 1-2 weeks. She needs to call the office to schedule an appointment. 2. She has been instructed to call to be seen sooner or return to the ER for any syncope, dizziness, chest pain, palpitations, any recurring temperature greater than 101 degrees and increase in her shortness of breath, any nausea, vomiting, diarrhea, constipation, black or bloody vomitus or stools, or for any questions or concerns that she may have. 3. She is being discharged home in stable condition with family members. This was a greater than 30-minute discharge. Dictated by [employer]IS Vital for Cipriano Castillo MD This chart was documented by, [employer]IS Vital and accurately reflects the services performed, treatment plan and medical decisions as attested by the providers signature Cipriano Castillo MD. cc: IVIS Vital MD MTDD
--- NOTE | 2018-06-08 23:53 | DISCHARGE SUMMARY ---
ADMISSION DATE: 05/30/2018 DISCHARGE DATE: 06/07/2018 ADDENDUM: Patient seen and examined by myself. Full note dictated and discussed with nurse practitioner. On discharge, patient is awake, alert. She is in minimal distress. She is able to ambulate back and forth to the restroom without much difficulty. The patient was admitted initially to the hospital with increased work of breathing, shortness of breath. Was noted to be in acute hypoxic respiratory failure, placed on oxygen, BiPAP and treated for pneumonia. On discharge, she will continue antibiotics, Medrol Dosepak. She will follow up outpatient with treatment facility of choice. Please see full note. cc: Cipriano Castillo MD
== END 2018-06-07 17:32 | disposition home or self-care (01) | DRG 871 ==
LOC: P.ED 04:53 → P.ICU 04:54 → SUATTDRO 04:54 → P.MEDSURG 06-02 16:04
PROVIDERS: ADMIT Family Medicine; ATTEND Family Medicine
CPT/HCPCS: 36415; 36569; 36584; 51702; 71010; 71045; 71260; 80048; 80053; 80104; 80202; 80301; 80305; 81001; 82550; 82553; 82805; 82948; 83605; 83735; 83880; 84100; 84484; 85025; 85027; 85610; 87040; 87088; 87275; 87276; 87804; 93005; 94640; 94660; 94667; 94668; 94761; 94799; 96365; 96366; 96367; 96375; 97161; 97530; 99285; A9270; C9113; G0431; G0434; G0477; J0692; J1335; J1650; J1815; J1940; J2020; J2405; J2543; J2920; J2930; J3370; J7040; J7050; Q9967; S0164; S4995; XXXXX